=== PATIENT | male | born 2000 | race Caucasian/White ===

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

== ENCOUNTER 2018-01-26 17:53 | Emergency (ER) | payer MEDICAID ==
[2018-01-26 20:31] VITALS: BP 166/86
--- NOTE | 2018-01-26 20:40 | ED Physician Documentation ---
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 He is having difficulty finding a provider for his current insurance, had called all the local clinics and counseling centers. [place] [facility] No: Suicidal ideation, Psychosis Timing - onset: Other (ran out of meds 2 days ago and is doing okay. He thought his [employer] would provide refills until he got new PCP (he is in process of that) but apparently not.) Contributing factors: No: Substance abuse - ETOH, Substance abuse - drugs Similar symptoms before: Diagnosis (OCD and depression) Recently seen: Not recently seen Review of Systems Constitutional: denies: Fever, Chills Nose: denies: Rhinorrhea / runny nose, Congestion Throat: denies: Sore throat Respiratory: denies: Cough GI: denies: Nausea, Vomiting, Diarrhea Psychiatric: denies: Depressed, Suicidal, Delusions, Anxiety PD PAST MEDICAL HISTORY - Past Medical History Cardiovascular: None Respiratory: None Neuro: None Psych: Depression, Obsessive compulsive disorder - Present Medications Home Medications: Ambulatory Orders Medication Instructions Recorded Confirmed Fluvoxamine Maleate 1 tab PO BID 01/26/18 01/26/18 Fluvoxamine Maleate 100 mg PO BID #60 tablet 01/26/18 - Allergies Allergies/Adverse Reactions: Allergies Allergy/AdvReac Type Severity Reaction Status Date / Time No Known Drug Allergies Allergy Verified 01/26/18 18:15 PD ED PE NORMAL - Vitals Vital signs reviewed: Yes - General General: Alert and oriented X 3, No acute distress, Well developed/nourished - Cardiac Cardiac: RRR, No murmur - Respiratory Respiratory: Clear bilaterally - Derm Derm: Normal color, Warm and dry - Neuro Neuro: Alert and oriented X 3, No motor deficit, Normal speech Results - Vitals Vitals: Oxygen O2 Source Room air PD MEDICAL DECISION MAKING - ED course Complexity details: considered differential, d/w patient Departure - Departure Disposition: 01 Home, Self Care Clinical Impression: History of OCD (obsessive compulsive disorder), Medication refill Condition: Stable Record reviewed to determine appropriate education?: Yes Prescriptions: Fluvoxamine Maleate 100 mg PO BID #60 tablet Comments: Continue usual medications. Sorry it took so long here in the ER. Obtain a new local provider as you are trying to do. Discharge Date/Time: 01/26/18 20:50
== END 2018-01-26 20:50 | disposition home or self-care (01) ==
LOC: ED 17:53
DX: F42.9 Obsessive-compulsive disorder, unspecified (principal); F32.9 Major depressive disorder, single episode, unspecified
CPT/HCPCS: 99282; 99283